=== PATIENT | female | born 2000 | race Caucasian/White ===

== ENCOUNTER 2019-02-20 19:12 | Emergency (ER) | payer OTHER ==
[~2019-02-20] VITALS: Ht 162.6 cm; Wt 62.1 kg
[~2019-02-20 19:12] MED LIST: ZYRTEC10 MG PO
== END 2019-02-20 21:23 | disposition home or self-care (01) ==
LOC: ED 19:12
PROC: 0HDQXZZ Extraction of Finger Nail, External Approach (ICD-10-PCS; principal; 2019-02-20)
DX: S61.305A Unspecified open wound of left ring finger with damage to nail, initial encounter (principal); Z88.0 Allergy status to penicillin; Z88.5 Allergy status to narcotic agent; W50.0XXA Accidental hit or strike by another person, initial encounter; Y93.72 Activity, wrestling
CPT/HCPCS: 11730; 99283-25

== ENCOUNTER 2021-03-31 07:45 | Inpatient (IN) | payer OTHER ==
[~2021-03-31] VITALS: Ht 162.6 cm; Wt 76.2 kg
--- NOTE | ~2021-03-31 | OR ---
[facility] [place] [facility] [address] [place], [place] [address] Draft DATE OF OPERATION: 03/31/2021 SURGEON: Gwen Burton DO PREOPERATIVE DIAGNOSES: 1. IUP at 39 weeks gestation. 2. intolerance of labor. 3. Failure to progress. POSTOPERATIVE DIAGNOSES: 1. IUP at 39 weeks gestation. 2. intolerance of labor. 3. Failure to progress. 4. Small for gestational age. PROCEDURES PERFORMED: Primary low transverse delivery. AGENCY LEGAL COUNSEL: Pepe Ulloa MD. ANESTHESIA: Spinal. ESTIMATED BLOOD LOSS: 500 mL. COMPLICATIONS: None. FINDINGS: Viable male , 5 pounds 12 ounces, born in the ROP position with nuchal x2 tight around neck. Normal uterus, tubes, and ovaries. INDICATIONS: Ms. Mensah is a pleasant 20-year-old, G1, P0, with IUP at 39 weeks gestation, presented to Labor and Delivery in spontaneous labor. complicated by COVID and with recent ultrasound demonstrating estimated weight of 6 pounds 12 ounces, as well as penicillin allergy. She is GBS positive and was given a dose of vancomycin. The patient quickly made change from 3-4 cm to 8-9 cm despite contractions PATIENT NAME: LUCHO MENSAH OPERATIVE REPORT DATE OF : 99 REPORT #: [id number] PHYSICIAN: GWEN BURTON DO PCP: ESPINOSA,ALCON K PA-C REPORT IS CONFIDENTIAL AND NOT TO BE RELEASED WITHOUT AUTHORIZATION [facility] [place] [facility] [address] [place], [place] [address] Draft every 7-10 minutes. Patient then developed recurrent variable decelerations. Amnioinfusion was started that initially resolved variable decelerations, however, they did continue. The Pitocin was used to augment the labor to shorten the interval and amplitude of contractions. However, this had to be discontinued due to intolerance of labor. Cervix then began to swell somewhat and decision was made to proceed with primary low transverse delivery. Risks, benefits, and alternatives were discussed in detail with the patient. The patient understands and wishes to proceed with the procedure. TECHNIQUE: The patient was taken to the operating room where a time-out was performed to confirm correct patient and correct procedure. The patient previously received an epidural, but was found to be inadequate. Decision was made to proceed with spinal anesthetic, which was found to be adequate. The patient was prepped and draped in the supine position with a bump on the right hip. Michaels catheter had been previously administered. ICPs were on and running. Patient received clindamycin 900 mg IV, gentamicin 5 mg/kg IV, and azithromycin 500 mg. Heparin was not indicated. After spinal was demonstrated to be adequate, a Pfannenstiel skin incision was made and carried down to the fascia. The fascia was nicked in the midline and fascial incision was extended bilaterally using curved Escobar scissors. Fascia was grasped with Ibeth's, elevated, and the underlying rectus muscle dissected off bluntly and sharply. Rectus muscles were then divided in the midline using blunt dissection the peritoneum was entered bluntly. Peritoneal incision was then extended bilaterally using blunt dissection and an Dion self retractor was placed. The lower uterine segment was identified and found to be normal. Hysterotomy was then performed using a surgical scalpel and clear amniotic fluid was returned. Hysterotomy was then extended using blunt dissection. The surgeon's hand was placed in the uterine cavity and the head elevated in the abdomen delivered with the assistance of fundal pressure. Nuchal cord x2 tight was noted and reduced. The remainder of the delivered easily with the assistance of fundal pressure and was vigorous and cried at delivery. Cord was doubly clamped and cut and the handed to the awaiting pediatric team for further care. Cord was obtained for routine analysis. Uterus was manually expressed intact with a centrally inserted three-vessel cord. This was sent to pathology for history of COVID and small for gestational age. The uterine cavity was cleared of any remaining products of conception and clot and the hysterotomy was then repaired in two layers of 0 Monocryl with the first being a running locked stitch and the second being an imbricating vertical stitch. Good hemostasis was appreciated. The pelvis was irrigated and found to be hemostatic. Normal tubes and ovaries bilaterally were appreciated. ACell sheet was applied to the lower uterine segment. Peritoneum was then reapproximated using 2-0 Vicryl in a running nonlocked manner. Rectus muscles were examined, found to be hemostatic after judicious use of Bovie electrocautery. They were irrigated and found to be hemostatic. 0 Vicryl was used to gently plicate the rectus muscles loosely in the midline. ACell powder was PATIENT NAME: LUCHO MENSAH OPERATIVE REPORT DATE OF : 99 REPORT #: [id number] PHYSICIAN: GWEN BURTON DO PCP: ALCON ESPINOSA PA-C REPORT IS CONFIDENTIAL AND NOT TO BE RELEASED WITHOUT AUTHORIZATION [address] [address] Draft applied to the rectus sheath. Fascia was reapproximated using 0 Vicryl in a running nonlocked manner. Subcu was irrigated and made hemostatic with the judicious use of Bovie electrocautery. Subcu was then reapproximated using 3-0 Vicryl in a running nonlocked manner. Skin was reapproximated using surgical aidan. The uterus was Crede'd for scant amount of blood. The patient was taken to PACU in good and stable condition. Sponge, needle, and instrument count was correct x2 at the end the procedure. Dr. Ulloa, present and participated in all portions of the procedure. Gwen Burton DO JKarenW/JADYN /[id number] Copies: ~ PATIENT NAME: LUCHO MENSAH OPERATIVE REPORT DATE OF : 99 REPORT #: [id number] PHYSICIAN: GWEN BURTON DO PCP: ALCON ESPINOSA PA-C REPORT IS CONFIDENTIAL AND NOT TO BE RELEASED WITHOUT AUTHORIZATION
--- NOTE | 2021-03-31 10:31 | PR ---
[facility] [address] [place], [place] [address] Signed Progress Notes IP Datetime Report Generated by CPN: 03/31/2021 10:30 PROGRESS NOTES: [id number] Impression: Normal Progression of Labor; Reassuring Heart Rate Procedures: Intrauterine Pressure Catheter; Scalp Electrode; Sterile Vag Exam Plan: Continue Present Management; Anticipate Vaginal Delivery Informed Consent Obtain: Vaginal Delivery VITAL SIGNS: [id number] EXAM: [id number] Dilatation: 6.0 Effacement: 90 Station: 0 Contractions: Irregular MEMBRANES: [id number] Comments: Pt seen and examined. Contractions increasing in frequency and intensity. SROM w/ clear fluid confirmed by nitrazine by RN. Vancomycin infusing. Pt 6-7 cm cervix that is quite strechy with low station. IUPC and FSE placed w/out difficulty. Anticipet . Reviewed variable decelerations and management strategies. Pt requesing epidural. All quesitons answered FETUS A: [id number] FHR Baseline: 135 Variability: Moderate 6-25bpm Accelerations: 15X15 Decelerations: Variable FHR Category: Category II Comments on Fetus A: No evidence of metabolic acidosis FETUS B: [id number] Signing Physician: Gwen Burton DO Copies: ~ *Electronically Signed* 03/31/21 1030 GWEN BURTON DO PATIENT NAME: LUCHO MENSAH PROGRESS NOTE DATE OF : 99 PHYSICIAN: GWEN BURTON DO RPT #: [id number] REPORT IS CONFIDENTIAL AND NOT TO BE RELEASED WITHOUT AUTHORIZATION
--- NOTE | 2021-03-31 11:22 | PR ---
[facility] [address] [facility] [place], [place] [address] Signed Progress Notes IP Datetime Report Generated by CPN: 03/31/2021 11:22 PROGRESS NOTES: [id number] Impression: Normal Progression of Labor; Reassuring Heart Rate Procedures: Sterile Vag Exam; Amnio Infusion Plan: Continue Present Management Informed Consent Obtain: Vaginal Delivery VITAL SIGNS: [id number] EXAM: [id number] Dilatation: 6.0 Effacement: 90 Station: 0 Contractions: Irregular MEMBRANES: [id number] Comments: Doing well. More painful w/ contractions and requesting epidural. Cx unchanged since last exam and CTXs inadequate. Will start amnioinfusion and consider augementation. FETUS A: [id number] FHR Baseline: 135 Variability: Moderate 6-25bpm Accelerations: 15X15 Decelerations: Variable FHR Category: Category II Comments on Fetus A: No evidence of metabolic acidosis FETUS B: [id number] Signing Physician: Gwen Burton DO Copies: ~ *Electronically Signed* 03/31/21 1122 GWEN BURTON DO PATIENT NAME: LUCHO MENSAH PROGRESS NOTE DATE OF : 99 PHYSICIAN: GWEN BURTON DO RPT #: [id number] REPORT IS CONFIDENTIAL AND NOT TO BE RELEASED WITHOUT AUTHORIZATION
--- NOTE | 2021-03-31 12:09 | PR ---
[facility] [address] [place], [place] [address] Signed Progress Notes IP Datetime Report Generated by CPN: 03/31/2021 12:09 PROGRESS NOTES: [id number] Impression: Normal Progression of Labor Procedures: Sterile Vag Exam; Amnio Infusion Plan: Continue Present Management Informed Consent Obtain: Vaginal Delivery; Section Delivery; Risks, Benefits and Alternatives Discussed VITAL SIGNS: [id number] EXAM: [id number] Dilatation: 8.0 Effacement: 95 Station: 0 Contractions: Irregular MEMBRANES: [id number] Comments: Pt seen and evaluated. Recurrent variable decelerations w/ prolonged deceleration. 8cm per RN. Amnioinfusion bolus completed but variables not improved. Discussed indications for but will continue expectant management for the time. OR crew and assistant infant toddler teacher available, and anesthesia at bedside. All questions answered. FETUS A: [id number] FHR Baseline: 135 Variability: Moderate 6-25bpm Accelerations: 15X15 Decelerations: Variable FHR Category: Category II Comments on Fetus A: No evidence of metabolic acidosis FETUS B: [id number] Signing Physician: Gwen Burton DO Copies: ~ *Electronically Signed* 03/31/21 4164 GWEN BURTON DO PATIENT NAME: LUCHO MENSAH PROGRESS NOTE DATE OF : 99 PHYSICIAN: GWEN BURTON DO RPT #: [id number] REPORT IS CONFIDENTIAL AND NOT TO BE RELEASED WITHOUT AUTHORIZATION
--- NOTE | 2021-03-31 13:02 | PR ---
[facility] [address] [place], [place] [address] Signed Progress Notes IP Datetime Report Generated by CPN: 03/31/2021 13:01 PROGRESS NOTES: [id number] Impression: Normal Progression of Labor; Reassuring Heart Rate Procedures: Sterile Vag Exam Plan: Continue Present Management Informed Consent Obtain: Vaginal Delivery; Section Delivery; Risks, Benefits and Alternatives Discussed VITAL SIGNS: [id number] EXAM: [id number] Dilatation: 8.0 Effacement: 90 Station: 0 Contractions: Irregular MEMBRANES: [id number] Comments: Pt seen and examined. Doing well. Comfortable w/ epidural. FHT much improved. Will monitor closely. Anticipate , but reviewed indications for C/S FETUS A: [id number] FHR Baseline: 135 Variability: Moderate 6-25bpm Accelerations: 15X15 Decelerations: Variable FHR Category: Category II Comments on Fetus A: No evidence of metabolic acidosis FETUS B: [id number] Signing Physician: Gwen Burton DO Copies: ~ *Electronically Signed* 03/31/21 1301 GWEN BURTON DO PATIENT NAME: MENSAH,DESTANEE H A PROGRESS NOTE DATE OF : 99 PHYSICIAN: GWEN BURTON DO RPT #: [id number] REPORT IS CONFIDENTIAL AND NOT TO BE RELEASED WITHOUT AUTHORIZATION
--- NOTE | 2021-03-31 14:27 | PR ---
[facility] [address] [facility] [place], [place] [address] Signed Progress Notes IP Datetime Report Generated by CPN: 03/31/2021 14:27 PROGRESS NOTES: [id number] Impression: Normal Progression of Labor; Reassuring Heart Rate Procedures: Sterile Vag Exam Plan: Continue Present Management; Anticipate Vaginal Delivery Informed Consent Obtain: Vaginal Delivery VITAL SIGNS: [id number] EXAM: [id number] Dilatation: 9.0 Effacement: 90 Station: 0 Contractions: Irregular MEMBRANES: [id number] Comments: Pt seen and examined. Doing well. Comfortable w/ epidural. Varible deceleration while sitting straight up in bed but otherwise variables resolved w/ amnioinfusion. . Will consider augmentation if needed. Discussed anticipated course of remainder of labor FETUS A: [id number] FHR Baseline: 135 Variability: Moderate 6-25bpm Accelerations: 15X15 Decelerations: Variable FHR Category: Category II Comments on Fetus A: No evidence of metabolic acidosis FETUS B: [id number] Signing Physician: Gwen Burton DO Copies: ~ *Electronically Signed* 03/31/21 1427 GWEN BURTON DO PATIENT NAME: LUCHO MENSAH PROGRESS NOTE DATE OF : 99 PHYSICIAN: GWEN BURTON DO RPT #: [id number] REPORT IS CONFIDENTIAL AND NOT TO BE RELEASED WITHOUT AUTHORIZATION
--- NOTE | 2021-03-31 16:50 | PR ---
[facility] [address] [place], [place] [address] Signed Progress Notes IP Datetime Report Generated by CPN: 03/31/2021 16:50 PROGRESS NOTES: [id number] Impression: Reassuring Heart Rate Procedures: Sterile Vag Exam Plan: Augmentation Informed Consent Obtain: Vaginal Delivery VITAL SIGNS: [id number] EXAM: [id number] Dilatation: 9.0 Effacement: 90 Station: 0 Contractions: Irregular MEMBRANES: [id number] Comments: Pt seen and examined. Doing well. More uncomfortable w/ epidural. Requesting rebolus per anesthesia. CTXs continue to be inadequate with variable decelerations. Although FHT overall reassuring, difficult to increase pitocin per protocol. Will continue to monitor FETUS A: [id number] FHR Baseline: 135 Variability: Moderate 6-25bpm Accelerations: 15X15 Decelerations: Variable FHR Category: Category II Comments on Fetus A: No evidence of metabolic acidosis FETUS B: [id number] Signing Physician: Gwen Burton DO Copies: ~ *Electronically Signed* 03/31/21 5620 GWEN BURTON DO PATIENT NAME: LUCHO MENSAH PROGRESS NOTE DATE OF : 99 PHYSICIAN: GWEN BURTON DO RPT #: [id number] REPORT IS CONFIDENTIAL AND NOT TO BE RELEASED WITHOUT AUTHORIZATION
--- NOTE | 2021-03-31 17:39 | PR ---
[facility] [address] [place], [place] [address] Signed Progress Notes IP Datetime Report Generated by CPN: 03/31/2021 17:39 PROGRESS NOTES: [id number] Impression: Arrest of Dilatation/Descent; Non-reassuring Heart Rate Procedures: Sterile Vag Exam Plan: Deliver- Section Informed Consent Obtain: Section Delivery VITAL SIGNS: [id number] EXAM: [id number] Dilatation: 9.0 Effacement: 90 Station: 0 Contractions: Irregular MEMBRANES: [id number] Comments: Pt seen and examined. Very uncomfortable w/ contractions. Rebolus by anesthesia w/ residual painful window. Cervix more edematous and unchanged - confirmed by RN. Reviewed inadequate contractions and intolerance of labor w/ recurrent deep variable decelerations w/ contractions. Discussed continuing trial of labor vrs C/S and recommended primary LTCS. Pt understands and agrees. Terb and Abx ordered (Clinda, Gent, and Azithromicin). OR crew notified and anesthesia in house. Dr. Ulloa notified and en route. Consents signed. FETUS A: [id number] FHR Baseline: 135 Variability: Moderate 6-25bpm Accelerations: 15X15 Decelerations: Variable FHR Category: Category II Comments on Fetus A: No evidence of metabolic acidosis FETUS B: [id number] Signing Physician: Gwen Burton DO Copies: ~ *Electronically Signed* 03/31/21 2117 GWEN BURTON DO PATIENT NAME: RODRICKLUCHO Naidu PROGRESS NOTE DATE OF : 99 PHYSICIAN: GWEN BURTON DO RPT #: [id number] REPORT IS CONFIDENTIAL AND NOT TO BE RELEASED WITHOUT AUTHORIZATION
--- NOTE | 2021-03-31 19:14 | NUR ---
03/31/211913 Sary Gardner 1852 PT ARRIVED TO [facility] ROOM 106, VSS. PT AWAKE AND TALKING TO RN. PT DENIES PAIN BUT "A LITTLE" NAUSEA. SPINAL EDUCATION GIVEN. 1909 BABY TO CHEST WITH [facility] RN.
--- NOTE | 2021-04-01 18:56 | PR ---
[facility] [address] [facility] [place], [place] [address] Signed PP Progress Notes Datetime Report Generated by CPN: 04/01/2021 18:56 SUBJECTIVE: [id number] Pain: Within Normal Limits Nausea/Vomiting: Denies Flatus: Yes Bowel Movement: No Vital Signs: [id number] Vital Signs: Reviewed; Within Normal Limits EXAM: Ongoing Cardiovascular: Normal Respiratory: Normal Abdomen/Uterus: Normal Lochia: Normal Vulva/Perineum: Normal CVA Tenderness: Normal Extremities: Normal Incision: Normal Progress: Normal Exam Comments: Fundus firm U-2 nontender. Incision healing well IMPRESSION/PLAN/PROCEDURES: [id number] Impression: Normal Progression Plan: Continue Present Management Progress Notes: Pt seen and examined. Doing well. Ambulating, voiding, and tolerating full diet. Pain and lochia minimal. well. No fevers/chills/other concerns. Desires d/c home tomorrow. Hgb 9.6 Signing Physician: Gwen Burton DO Copies: ~ *Electronically Signed* 04/01/21 185 GWEN BURTON DO PATIENT NAME: LUCHO MENSAH PROGRESS NOTE DATE OF : 99 PHYSICIAN: GWEN BURTON DO RPT #: [id number] REPORT IS CONFIDENTIAL AND NOT TO BE RELEASED WITHOUT AUTHORIZATION
--- NOTE | 2021-04-02 09:20 | PR ---
[facility] [address] [facility] [place], [place] [address] Signed PP Progress Notes Datetime Report Generated by CPN: 04/02/2021 09:20 SUBJECTIVE: [id number] Pain: Within Normal Limits Nausea/Vomiting: Denies Flatus: Yes Bowel Movement: No Vital Signs: [id number] Vital Signs: Reviewed; Within Normal Limits EXAM: Ongoing Cardiovascular: Normal Respiratory: Normal Abdomen/Uterus: Normal Lochia: Normal Vulva/Perineum: Not Done Breasts: Not Done CVA Tenderness: Normal Extremities: Normal Incision: Normal Progress: Normal Exam Comments: Fundus firm U-2 nontender Incision healing well IMPRESSION/PLAN/PROCEDURES: [id number] Impression: Normal Progression Plan: Remove Huseyin; Discharge Progress Notes: Pt seen and examined. Doing well. Ambulating, voiding, and tolerating full diet. Pain and lochia minimal. well. No fevers/chills/concerns. Desires d/c home. Reviewed d/c instructions and medications in detail. Planning IUD pp contraception. All questions answered. Signing Physician: Gwen Burton DO Copies: ~ *Electronically Signed* 04/02/21919 GWEN BURTON DO PATIENT NAME: LUCHO MENSAH PROGRESS NOTE DATE OF : 99 PHYSICIAN: GWEN BURTON DO RPT #: [id number] REPORT IS CONFIDENTIAL AND NOT TO BE RELEASED WITHOUT AUTHORIZATION
== END 2021-04-02 12:40 | disposition home or self-care (01) | DRG 787 ==
LOC: FBCO 07:45 → FBC 08:31
PROVIDERS: ADMIT Obstetrics & Gynecology; ATTEND Obstetrics & Gynecology
PROC: 10907ZC Drainage of Amniotic Fluid, Therapeutic from Products of Conception, Via Natural or Artificial Opening (ICD-10-PCS; 2021-03-31)
PROC: 10H07YZ Insertion of Other Device into Products of Conception, Via Natural or Artificial Opening (ICD-10-PCS; 2021-03-31)
PROC: 10D00Z1 Extraction of Products of Conception, Low, Open Approach (ICD-10-PCS; principal; 2021-03-31 18:13)
DX: O36.5930 Maternal care for other known or suspected poor fetal growth, third trimester, not applicable or unspecified (principal); O99.324 Drug use complicating childbirth; O99.824 Streptococcus B carrier state complicating childbirth; O76 Abnormality in fetal heart rate and rhythm complicating labor and delivery; O64.0XX0 Obstructed labor due to incomplete rotation of fetal head, not applicable or unspecified; O62.1 Secondary uterine inertia; O69.1XX0 Labor and delivery complicated by cord around neck, with compression, not applicable or unspecified; O99.334 Smoking (tobacco) complicating childbirth; F17.210 Nicotine dependence, cigarettes, uncomplicated; F12.90 Cannabis use, unspecified, uncomplicated; Z3A.39 39 weeks gestation of pregnancy; Z86.16 Personal history of COVID-19; Z37.0 Single live birth; Z88.0 Allergy status to penicillin
CPT/HCPCS: 01961; 85027; A9270; J0456; J1100; J1580; J1885; J2001; J2274; J2405; J2590; J2795; J3010; J3105; J3370; J7030; J7060; J7121; U0003

== ENCOUNTER 2024-09-12 06:52 | Inpatient (IN) | payer OTHER ==
[~2024-09-12] VITALS: Ht 162.6 cm; Wt 79.8 kg
[2024-09-18 05:55] LABS: HEMATOCRIT 33.5 % (35.0-50.0); HEMOGLOBIN 11.8 g/dL (12.0-18.0); MCH 30.1 (27-36); MCHC 35.3 g/dl (30-36); MCV 85.3 fl (81-99); RBC 3.93 M/ul (4.3-5.7); RDW 12.7 (10.5-15.0)
[2024-09-18 06:02] LABS: AMPHETAMINES, UR NEGATIVE (NEGATIVE); BARBITURATES, UR NEGATIVE (NEGATIVE); BENZODIAZEPINES, UR NEGATIVE (NEGATIVE); BUPRENORPHINE,UR NEGATIVE (NEGATIVE); COCAINE, UR NEGATIVE (NEGATIVE); MARIJUANA (THC), UR POSITIVE (NEGATIVE); MDMA, UR NEGATIVE (NEGATIVE); METHADONE, UR NEGATIVE (NEGATIVE); METHAMPHETAMINE, UR NEGATIVE (NEGATIVE); OPIATES, UR NEGATIVE (NEGATIVE); OXYCODONE, UR NEGATIVE (NEGATIVE); PHENCYCLIDINE, UR NEGATIVE (NEGATIVE); TRICYCLIC ANTIDEPRESSANT, UR NEGATIVE (NEGATIVE)
[2024-09-18 06:12] VITALS: BP 127/80
[2024-09-18 06:48] LABS: ABO O; ANTIBODY SCREEN NEGATIVE; RH POSITIVE
[2024-09-18] MEDS ORDERED: SOD+POT BICARB/CITRIC ACID 2 EA TABLET.EFF PO SCH (07:00)
[2024-09-18] MEDS ORDERED: LACTATED RINGER'S 1,000 ML IV SCH ×2 (07:00→08:36)
[2024-09-18] MEDS ORDERED: LACTATED RINGER'S 2,000 ML IV PRN (07:00)
[2024-09-18] MEDS ORDERED: CLINDAMYCIN PHOSPHATE/D5W 900 MG/50 ML PIGGYBACK IV SCH (07:00)
[2024-09-18] MEDS ORDERED: GENTAMICIN SULFATE IV SCH (07:00)
[2024-09-18] MEDS ORDERED: DEXTROSE 5% IV SCH (07:00)
[2024-09-18] MEDS ORDERED: LIDOCAINE HCL 2% 5 ML SDV ONE (07:10)
[2024-09-18] MEDS ORDERED: MORPHINE SULFATE 1 MG/ML VIAL ONE (07:10)
[2024-09-18] MEDS ORDERED: diphenhydrAMINE HCL 50 MG/ML VIAL ONE (07:10)
[2024-09-18] MEDS ORDERED: ondansetron HCL 4 MG/2 ML VIAL ONE (07:10)
[2024-09-18] MEDS ORDERED: Ropivacaine HCl 0.5% 30 ML VIAL ONE (07:10)
[2024-09-18] MEDS ORDERED: OXYTOCIN 10 UNITS/ML VIAL ONE ×3 (07:10→08:17)
[2024-09-18] MEDS ORDERED: SODIUM CHLORIDE 0.9% 20 ML IV ONE (07:10)
[2024-09-18] MEDS ORDERED: BUPIVACAINE 0.75% IN DEXTROSE 2 ML AMP ONE (07:10)
[2024-09-18] MEDS ORDERED: fentaNYL citrate 100 MCG/2 ML VIAL ONE (07:10)
[2024-09-18] MEDS ORDERED: DEXAMETHASONE SOD PHOS 4 MG/ML VIAL ONE (07:11)
[2024-09-18] MEDS ORDERED: dexmedeTOMIDine HCl 200 MCG/2 ML VIAL ONE (07:11)
[2024-09-18] MEDS ORDERED: PHENYLEPHRINE HCL 10 MG/ML VIAL ONE (07:35)
[2024-09-18] MEDS ORDERED: NALOXONE HCL 0.4 MG SYR IV PRN (08:00)
[2024-09-18] MEDS ORDERED: PROCHLORPERAZINE EDISYLATE 10 MG/2 ML VIAL IV PRN (08:00)
[2024-09-18] MEDS ORDERED: ondansetron HCL 4 MG/2 ML VIAL IV PRN (08:00)
[2024-09-18] MEDS ORDERED: diphenhydrAMINE HCL 50 MG/ML VIAL IV PRN (08:00)
[2024-09-18] MEDS ORDERED: KETOROLAC TROMETHAMINE 30 MG/ML VIAL IV PRN (08:00)
[2024-09-18] MEDS ORDERED: HYDROmorphone HCL 1 MG/ML SYR IV PRN (08:00)
[2024-09-18] MEDS ORDERED: LACTATED RINGER'S 1,000 ML IV ONE ×2 (08:17)
[2024-09-18] MEDS ORDERED: OXYTOCIN/0.9 % SODIUM CHLORIDE 500 ML IV SCH (08:30)
[2024-09-18] MEDS ORDERED: PROMETHAZINE HCL 25 MG SUPP PR PRN (08:30)
[2024-09-18] MEDS ORDERED: PROMETHAZINE HCL 25 MG TAB PO PRN (08:30)
[2024-09-18] MEDS ORDERED: LIDOCAINE 2% VISCOUS 6 ML SYR TOP ONE (08:30)
[2024-09-18] MEDS ORDERED: HYDROCODONE/ACETA 5/325 TAB PO PRN (08:30)
[2024-09-18] MEDS ORDERED: bisacodyL 10 MG SUPP PR PRN (08:30)
[2024-09-18] MEDS ORDERED: SENNOSIDES/DOCUSATE 1 EA TAB PO SCH (09:00)
[2024-09-18 09:22] VITALS: BP 106/59
--- NOTE | 2024-09-18 09:28 | NUR ---
09/18/24 0928 Marychuy Meeks 0836-PT BROUGHT TO [facility] ROOM 104 FROM [facility] OR, VIA STRETCHER, PT RESTING SEMI FOWLERS, PT A+O X4, DENIES PAIN OR NAUSEA, VSS ON RA. PT ASKING TO BE SAT UP, PT EDUCATED ON POST SPINAL POSITIONING, UNDERSTANDING VERBALIZED, HOB RAISED TO 45 DEGREES, PT CONTINUES TO DENIE NAUSEA. 0840-PT BREAST FEEDING BABY, DENIES ANY PAIN OR NAUSEA, VSS ON RA. 0855-PT CONTINUES TO BREASTFEED, DENIES ANY PAIN OR NAUSEA, VS REMAIN STABLE ON RA. BEDSIDE REPORT GIVEN TO [facility] RN AND FINAL FUNDAL CHECK AND MASSAGE COMPLETED W/ [facility] RN.
[2024-09-18] MEDS ORDERED: SIMETHICONE 80 MG CHEW PO SCH (11:00)
[2024-09-18] MEDS ORDERED: KETOROLAC TROMETHAMINE 30 MG/ML VIAL IV SCH (14:00)
[2024-09-19 05:47] LABS: HEMATOCRIT 27.7 % (35.0-50.0); HEMOGLOBIN 9.8 g/dL (12.0-18.0); MCH 30.1 (27-36); MCHC 35.3 g/dl (30-36); MCV 85.5 fl (81-99); RBC 3.24 M/ul (4.3-5.7); RDW 12.8 (10.5-15.0)
[2024-09-19] MEDS ORDERED: SOD+POT BICARB/CITRIC ACID 2 EA TABLET.EFF PO SCH (07:00)
[2024-09-19] MEDS ORDERED: IBUPROFEN 600 MG TAB PO ONE (07:45)
[2024-09-19] MEDS ORDERED: ondansetron HCL 4 MG/2 ML VIAL IV PRN (08:00)
--- NOTE | 2024-09-19 09:07 | PR ---
[facility] [address] [facility] [place], [place] [address] Signed PP Progress Notes Datetime Report Generated by CPN: 09/19/2024 09:07 SUBJECTIVE: [id number] Pain: Within Normal Limits Nausea/Vomiting: Denies Flatus: Yes Vital Signs: [id number] Vital Signs: Reviewed; Within Normal Limits EXAM: Ongoing Cardiovascular: Normal Respiratory: Normal Abdomen/Uterus: Normal Lochia: Normal Vulva/Perineum: Normal Breasts: Normal CVA Tenderness: Not Done Extremities: Normal Incision: Normal Progress: Normal IMPRESSION/PLAN/PROCEDURES: [id number] Impression: Normal Progression Plan: Continue Present Management; Discharge Procedures: None Progress Notes: REcovering well. ambulating. Incision C/D/I. Desires D/C home today. Signing Physician: Dorota Maharaj MD Copies: ~ *Electronically Signed* 09/19/24 0907 DOROTA MAHARAJ MD PATIENT NAME: LUCHO MENSAH PROGRESS NOTE DATE OF : 99 PHYSICIAN: DOROTA MAHARAJ MD RPT #: [id number] REPORT IS CONFIDENTIAL AND NOT TO BE RELEASED WITHOUT AUTHORIZATION
[2024-09-19] MEDS ORDERED: IBUPROFEN 600 MG TAB PO SCH (14:00)
== END 2024-09-19 14:00 | disposition home or self-care (01) | DRG 787 ==
LOC: FBC 09-18 05:06
PROVIDERS: ADMIT Obstetrics & Gynecology; ATTEND Obstetrics & Gynecology
PROC: 10D00Z1 Extraction of Products of Conception, Low, Open Approach (ICD-10-PCS; principal; 2024-09-18 07:30)
DX: O34.211 Maternal care for low transverse scar from previous cesarean delivery (principal); O99.324 Drug use complicating childbirth; Z3A.39 39 weeks gestation of pregnancy; Z37.0 Single live birth; Z88.0 Allergy status to penicillin; Z98.890 Other specified postprocedural states; F12.90 Cannabis use, unspecified, uncomplicated; O99.334 Smoking (tobacco) complicating childbirth; F17.210 Nicotine dependence, cigarettes, uncomplicated; Z79.899 Other long term (current) drug therapy
CPT/HCPCS: 01961; 36415; 76942; 80307; 85027; 86850; 86900; 86901; A9270; J1100; J1200; J1580; J1885; J2003; J2274; J2371; J2405; J2590; J2795; J3010; J3490; J7060; J7121